=== PATIENT | female | born 1955 | race Caucasian/White ===

== ENCOUNTER 2025-04-27 10:44 | Outpatient (CLI) | payer OTHER, SELFPAY | END 2025-04-27 10:45 | disposition home or self-care (01) | LOC: NFLDREF 04-30 14:37 | PROVIDERS: PCP Family Medicine; Visit Provider Family Medicine | DX: I10 Essential (primary) hypertension (principal); E78.5 Hyperlipidemia, unspecified; E11.9 Type 2 diabetes mellitus without complications; Z13.6 Encounter for screening for cardiovascular disorders; Z13.1 Encounter for screening for diabetes mellitus | CPT/HCPCS: 80048; 80061 ==